=== PATIENT | male | born 1955 ===

== ENCOUNTER 2025-09-04 08:46 | Outpatient (AMB) | payer OTHER, MEDICAID, SELFPAY ==
[2025-09-04 08:51] VITALS: BMI 19.6
--- NOTE | 2025-09-04 08:51 | A.PHYSOV_ITS ---
Vital Signs 09/04/25 08:51 Height 5 ft 7 in Weight 125 lb BMI 19.6 Intake Visit Reasons: Left shoulder injection (ortho note scanned) Intake Note: Patient is a 70 year male in office to requesting a left shoulder injection. Last injection done 05/16/25 by [facility] [employer] Required: No Allergies No Known Allergies Allergy (Verified 09/04/25 08:49) PFSH Medical History (Updated 09/04/25 @ 09:16 by Larry Ferreira DO) Rotator cuff impingement syndrome of left shoulder Surgical History (Updated 08/31/25 @ 12:37 by Mary Jon MA) Hx of eye surgery (Unknown) History of hernia repair History of cataract surgery Social History (Updated 09/04/25 @ 08:53 by Mary Jon MA) Household Members: Spouse Alcohol intake: current Alcohol intake frequency: 0-2 drinks per day Patient Tobacco Use Status: Never used Tobacco Substance Use Type: Marijuana Current occupational status: employed Physical Exam Vital Signs: BMI result Body Mass Index 19.6 Office Procedures AMB Shoulder Injection AMB Shoulder Injection Procedure Details: After informed consent was obtained, posterior aspect of the left shoulder was prepped with Betadine. 1.5 in 22 gauge hypodermic needle was introduced percutaneously and advanced into the subacromial area. After negative aspiration for blood total volume of 6 cc containing 40 mg of triamcinolone and 2% lidocaine was injected without resistance. Patient tolerated procedure very well without complications with excellent anesthetic response. Shoulder Injection - : Left All charges added?: Procedure code (CPT) selection complete Office Meds Kenalog 40 mg/mL suspension for injection Performing Provider: Larry Ferreira DO Performing Location: [facility] Administered by: Larry Ferreira DO on 09/04/25 09:16 Dose Route Admin Location Dispensed Lot Number Expiration Date [facility] Weight Yardage Checker 40 mg intra-articular 1 mL [id number] [employer] Total Dispensed Waste 1 mL 0 % lidocaine (PF) 20 mg/mL (2 %) injection solution Performing Provider: Larry Ferreira DO Performing Location: [facility] Administered by: Larry Ferreira DO on 09/04/25 09:16 Dose Route Admin Location Dispensed Lot Number Expiration Date [facility] Weight Yardage Checker 120 mg intra-articular 10 mL [id number] [employer] Total Dispensed Waste 10 mL 40 % Assessment & Plan Assessment & Plan (1) Rotator cuff impingement syndrome of left shoulder: Code(s): M75.42 - Impingement syndrome of left shoulder Category: Medical Plan Left shoulder subacromial injection Orders: Orders AMB Shoulder Injection Today M75.42 - Impingement syndrome of left shoulder Patient Instructions: Risks and benefits of the procedure were discussed with the patient. Potential alternative measures were also discussed. Patient understands that the procedure is completely elective. Potential side effects associated with injectable medications were discussed. All questions were answered to the patient's satisfaction. Coding Level of Care Code Procedure Only Diagnoses Rotator cuff impingement syndrome of left shoulder M75.42 CPT Codes AMB Shoulder Injection - Hip/Bursa Injection - : Left ([id number])
--- OUTSIDE RECORDS SUMMARY | 2025-09-04 09:08 | XMS_ITS | Encounter Summary ---
Author Organization [facility] Address [address] [place] [address] Care Team Providers Care Fish Egg Packer Name Role Phone Argenis Vences MD Primary Care Provider [phone] Encounter Details Date Type Department Care Team ([facility] Contact Info) Description 08/27/2025 Results Follow-Up Internal Medicine - [address] [phone] Yvan Kamara NP [address] [place] [phone] Social History Tobacco Use Types Packs/Day Years Used Date Smoking Tobacco: Never Smokeless Tobacco: Never Alcohol Use Standard Drinks/Week Comments Yes 5 (1 standard drink = 0.6 oz pur e alcohol) Housing Instability Answer Date Recorde d Are you worried that in the next 2 months you may not have stable housing? Yes 01/03/2025 Food Access & Nutrition Answer Date Rec orded Do you have access to a vari ety of food including fruits and vegetables? Yes 01/03/2025 Health Literacy Answer Date Recorded How often do you need to hav e someone help you when you read instructions, pamphlets, or other written material from your doctor or pharmacy? Rarely 01/03/2025 Caregiver: How often do you need to have someone help you when you read instructions, pamphlets, or other written material from your doctor or pharmacy? Not on file 01/03/2025 Financial Risk Answer Date Recorded How hard is it for you to pa y for the very basics like food, housing, medical care, and air conditioning / heating? Hard 01/03/2025 Transportation Answer Date Recorded Has the lack of transportati on kept you from meetings, work, or from getting things needed for daily living? Yes Has the lack of transportati on kept you from medical appointments or from getting medications? Yes 01/03/2025 Social Isolation Answer Date Recorded How often do you feel lonely or isolated from th ose around you? Often 01/03/2025 Food Risk Answer Date Recorded Within the past 12 months we worried whether our food would run out before we got money to buy more. Often true 01/03/2025 Within the past 12 months th e food we bought just didn't last and we didn't have money to get more. Often true 01/03/2025 Dependent Care Answer Date Recorded Do you need help finding or paying for care for your loved ones. 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care attendant or elderly care for an older adult? Yes 01/03/2025 Education Answer Date Recorded Do you think completing more education or training, like finishing a GED, going to college, or learning a trade, would be helpful for you? No 12/31/2024 Employment and Income Answer Date Recor ded During the last four weeks, have you been actively looking for work? Yes 01/03/2025 Living Situation Answer Date Recorded What is your living situation? Unrecognized valu e 01/03/2025 Sex and Gender Information Value Date Recorded Sex Assigned at Not on file Legal Sex Male 5:56 AM EST Gender Identity Not on file Sexual Orientation Not on file documented as of this encounter Ordered Prescriptions Prescription Sig Dispense Quantity Refills Last Filled Start Date End Date calcium carbonate-vitamin D3 600 mg-10 mcg (400 unit) chewable tabletIndications:H ypocalcemia Chew 1 tablet 1 (one) time each day. 30 tablet 08/27/2025 documented in this encounter Plan of Treatment Upcoming Encounters Date Type Department Care Team (Late st Contact Info) Description 11/14/2025 9:00 AM EST Office Visit Endocrinology - [address] [phone] [employer] [address] [place] [address] 11/19/2025 11:45 AM EST Office Visit Pulmonology [address] [place] [phone] Edward Germain MD [address] [place] [phone] 01/30/2026 11:00 AM EDT Office Visit Internal Medicine - [address] [phone] Argenis Vences MD [address] [place] [address] Scheduled Orders Name Type Priority Associated Diagnoses Orde r Schedule Basic metabolic panel Lab Routine Hypocalcemia Hypoproteinemia ([facility] V24) 1 Occurrences starting 08/27/2025 until 08/27/2026 Microalbumin creatinine urine ratio Lab Routine Hypoproteinemia ([facility] V24) Expected: 08/27/2025 (Approximate), Expires: 10/27/2025 Vitamin D 25 hydroxy Lab Routine Hypocalcemia Expected: 11/27/2025 (Approximate), Expires: 02/24/2026 Parathyroid hormone intact Lab Routine Hypocalcemia Expected: 09/03/2025 (Approximate), Expires: 12/25/2025 documented as of this encounter Visit Diagnoses Diagnosis Hypocalcemia- Primary Hypoproteinemia ([facility] V24) Other disorders of plasma protein metabolism documented in this encounter Additional Health Concerns Assessment Noted Time PHQ-9 Depression Total Score: 1 08/27/20 8:56 AM EST documented as of this encounter Care Teams Fish Egg Packer Relationship Specialty Start Date End Date Argenis Vences MD [address] [place] [address] PCP - General Internal Medicine 05/14/25 documented as of this encounter
--- OUTSIDE RECORDS SUMMARY | 2025-09-04 09:08 | XMS_ITS | Encounter Summary ---
Author Organization [facility] Address [address] [place] [address] Care Team Providers Care Childcare Attendant Name Role Phone Argenis Vences MD Primary Care Provider [phone] Encounter Details Date Type Department Care Team ([facility] st Contact Info) Description 08/05/2025 Results Follow-Up [facility] Pulmonary [address] [place] [address] Edward Germain MD [address] [place] [phone] Social History Tobacco Use Types Packs/Day Years [...] care for your loved ones. 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 daycare worker or elderly care for an older adult? [...] on file documented as of this encounter Plan of Treatment Upcoming Encounters Date Type Department Care Team (Late st Contact Info) Description 11/14/2025 9:00 AM EST Office Visit Endocrinology - [address] [phone] [employer] [address] [place] [address] 11/19/2025 11:45 AM EST Office Visit Pulmonology - [address] [place] [phone] Edward Germain MD [address] [place] [phone] 01/30/2026 11:00 AM EDT Office Visit Internal Medicine - [facility] [address] [facility] [place] [phone] Argenis Vences MD [address] [facility] [place] documented as of this encounter Visit Diagnoses Not on filedocumented in this encounter Additional Health Concerns Assessment Noted Time PHQ-9 Depression Total Score: 20 025 1:16 PM EDT documented as of this encounter Care Teams Childcare Attendant Relationship Specialty Start Date End Date Argenis Vences MD [address] [place] PCP - General Internal Medicine 05/14/25 documented as of this encounter
--- OUTSIDE RECORDS SUMMARY | 2025-09-04 09:08 | XMS_ITS | Clinical Summary ---
Author Organization 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 06/21/20 24 Active sildenafiL (VIAGRA) 100 mg tablet START WITH ONE-HALF TABLET AND INCREASE TO ONE TABLET NEEDED 30-60 MINUTES BEFORE INTERCOURSE. MAX OF 100MG IN 24 HOURS 01/19/20 24 Active pen needle, diabetic 32 gauge x 5/32 needle INJECT 1 EACH INTO THE SKIN 5 TIMES DAILY ( LANTUS TWICE A DAY AND HUMALOG 4-5 TIMES DAILY PER SLIDING SCALE) Active FREESTYLE LANCETS MISC 1 Each by Does not apply route 4 times daily as needed for Other (sliding scale). Active glucose blood test strip 1 Device by In Vitro route 4 times daily. Active Autolet lancing device Use to test sugars 4-5 times daily Active ONETOUCH DELICA LANCETS MISC Use to test sugars 4-5 times daily Active cyanocobalami n (VITAMIN B-12) 1,000 mcg tablet Take 1 tab daily from Tuesday to Tuesday - skip Tuesday and Tuesday 90 each 1 01/22/20 25 Active mirtazapine (REMERON) 15 mg tablet Take 1 tablet (15 mg total) by mouth at bedtime. 30 each 2 02/23/20 25 Active blood-glucose sensor (FreeStyle Jeremiah 3 Plus Sensor) device by subcutaneous (via wearable injector) route every 14 (fourteen) days. 2 each 04/16/20 25 Active albuterol HFA (PROAIR HFA ; PROVENTIL HFA ; VENTOLIN HFA) 90 mcg/actuation inhaler Inhale 2 puffs by mouth every 6 (six) hours if needed for wheezing. 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 Use the following sliding scale: 150-199: 2 units; 200-249: 3 units; 250-299: 4 units; 300-349: 5 units; 350-400: 6 units 15 mL 05/03/20 25 Active fluticasone furoate-vilan teroL (Breo Ellipta) 100-25 mcg/dose inhaler Inhale 1 puff by mouth 1 (one) time each day. 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 15 mL 08/14/20 25 Active calcium carbonate-vit hernandez D3 600 mg-10 mcg (400 unit) chewable tabletIndicat ions:Hypocalc emia Chew 1 tablet 1 (one) time each day. 30 tablet 08/27/20 25 Active blood-glucose meter,continu ous (FreeStyle Jeremiah 3 [place]) misc 1 Device by Does not apply route daily. 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 15 mL 5 07/18/20 25 025 Discontinued(R eorder) Active Problems Problem Noted Date Diagnosed Date Dyspnea 06/11/2022 Weight loss, unintentional 06/11/2022 Hyperlipidemia 02/19/2022 Assessment & Plan (01/21/2025 1:25 PM EDT): Follow low-cholesterol diet. Most recent cholesterol levels are normal. Depression 07/03/2019 Assessment & Plan (02/22/2025 2:23 PM EDT): I have increased his mirtazapine dose to 15 mg daily. Side effects of medication discussed. Will follow-up again in 2 months time. Osteoarthritis of left hand 08/23/2017 Chronic pain 06/13/2014 Overview (07/23/2024): Was on vicodin, one bid, on marijuana, no longer on Vicodin. DM type 1 with diabetic wan pheral neuropathy ([facility] V24, [facility] V28) 10/29/2013 Assessment & Plan (02/22/2025 2:23 PM EDT): Continue current treatment of insulin glargine and Humalog. He is being monitored by endocrinology. He is on gabapentin for neuropathy. Assessment & Plan (01/21/2025 1:25 PM EDT): He is being monitored by endocrinology for his type 1 diabetes. An upcoming appointment with them. He is on gabapentin for neuropathy. Orders: Microalbumin creatinine urine ratio; Future Vitiligo 06/18/2013 Positive hepatitis C antibody test 03/02/2013 Solar lentigo 01/03/2013 Microalbuminuria 01/28/2011 Assessment & Plan (02/22/2025 2:23 PM EDT): Repeat urine microalbumin levels normalized. 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 ([facility]/HCC V24, CMS/HCC V28); Screening, anemia, deficiency, iron; Hyperlipidemia, unspecified hyperlipidemia type 08/27/2025 9:00 AM EST Office Visit Internal Medicine - [address] [phone] Yvan Kamara NP Adrenal nodule ([facility]/HCC V24) (Primary Dx) 08/27/2025 Results Follow-Up Internal Medicine - [address] [phone] Yvan Kamara NP 08/14/2025 3:00 PM EST Office Visit Endocrinology - [address] [phone] Juana Marin PA 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 (CMS/HCC V24, CMS/HCC V28) (Primary Dx) 08/05/2025 Results Follow-Up [facility] Pulmonary [address] [place] [phone] Edward Germain MD 07/19/2025 8:33 AM EDT - 07/19/2025 11:59 PM EDT Hospital Encounter CT Scan - [address] [phone] Dyspnea, unspecified type; Mild intermittent reactive airway disease without complication; Cachexia ([facility]24); Pulmonary emphysema ([facility] V24, [facility] V28) Discharge Disposition: Home or Self Care 07/18/2025 9:30 AM EDT Office Visit Internal Medicine - [address] [phone] Yvan Kamara, ESTELA 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 ([facility] V24, [facility] V28) (Primary Dx); Hyperlipidemia, unspecified hyperlipidemia type; Screening, anemia, deficiency, iron; Immunization due 07/16/2025 11:00 AM EDT Office Visit Pulmonology [address] [phone] Edward Germain MD Dyspnea, unspecified type (Primary Dx); Mild intermittent reactive airway disease without complication; Cachexia ([facility] V24); Pulmonary emphysema ([facility] V24, [facility] V28) 07/16/2025 10:30 AM EDT Ancillary Procedure Pulmonology - [address] [phone] Exertional dyspnea 06/25/2025 5:45 PM EDT Office Visit Walk-In Clinic - [address] [phone] Segundo Perea PA COVID-19 (Primary Dx) 06/25/2025 Telephone Internal Medicine - [address] [phone] Argenis Vences MD 06/04/2025 Telephone Internal Medicine - [address] [phone] Argenis Vences MD from Last 3 Months Immunizations Immunization Administration Dates Next Due Influenza Quadravalent, MDCK , 0.5ml, preservative free (Flucelvax) 6mo and older 08/27/2019,08/04/2018 Influenza Quadravalent, MDCK , 0.5ml, with preservative (Flucelvax) 6mo and older 08/23/2017 Influenza trivalent, 0.5mL ( Fluad) 65yo and older 07/18/2025,07/26/2023,07/01/2022,07/02,07/31/2020 Influenza trivalent, 0.5mL, preservative free (Fluarix; FluLaval; Fluzone) ages 6mo and older (Afluria) 3 years and older 08/27/2016,09/15/2015,09/03/2014,10/13,06/29/2010,06/25/2009,09/23/2008 ,08/08/2007,07/28/2006 Pfizer SARS-CoV-2 COVID-19, mRNA, LNP-S, preservative free 08/23/2022,03/10/2022,01/15/2021,12/25 Pneumococcal conjugate 13 va lent (Prevnar 13, PCV13) 2mo and older 09/20/2020 Pneumococcal polysaccharide 23 valent (Pneumovax 23) 2yo and older 10/22/2021,07/19/2005,04/25/2000 Td Tetanus diptheria (Tdvax) 7yo and older 07/19/2005,04/25/2000 Tdap Tetanus diptheria acell ular pertussis (Boostrix; Adacel) 7yo and older 02/15/2013 Surgical History Surgery Date Site/Laterality Comments GLAUCOMA SURGERY PROCEDURE:GLAUCOMA SURGERY CATARACT EXTRACTION, BILATERAL PROCEDURE:CATARACT EXTRACTION, BILATERAL HERNIA REPAIR PROCEDURE:HERNIA REPAIR MULTIPLE TOOTH EXTRACTIONS 10/16 PROCEDURE: HISTORICAL DENTAL EXTRACTION; COMMENT: 10/16 all maxillary teeth extracted except one, parital denture EYE SURGERY 10/2014 Bilateral PROCEDURE: HISTORICAL EYE SURGERY; COMMENT: Dr Estevez retina surgery COLONOSCOPY 04/18/07 PROCEDURE: HISTORICAL COLONOSCOPY; COMMENT: normal; repeat in ten years OTHER SURGICAL HISTORY 04/20/2017 PROCEDURE: COLON CA SCRN NOT HI RSK IND; COMMENT: tics; repeat in 10 yrs EYE SURGERY 04/2018 Bilateral PROCEDURE: HISTORICAL EYE SURGERY; COMMENT: Dr Hero Bravo bilat Laser for narrow angle glaucoma HERNIA REPAIR 12/2018 Left PROCEDURE: HISTORICAL HERNIA REPAIR/ING; COMMENT: Dr Patton CATARACT EXTRACTION 01/2019 Bilateral PROCEDURE: HISTORICAL CATARACT REMOVAL Medical History Medical History Date Comments Diabetes mellitus (CMS/[facility] V 24, CMS/[facility] V28) DX:Diabetes mellitus (HCC) Vitiligo DX:Vitiligo Type I (juvenile type) diabe valerie mellitus without mention of complication, not stated as uncontrolled 04/22/2006 DX:Type I (juvenile type) di abetes mellitus without mention of complication, not stated as uncontrolled Solar lentigo 01/03/2013 DX:Solar lentigo Osteoarthritis of left hand 08/23/2017 DX:O steoarthritis of left hand Left inguinal hernia DX:Left ing uinal hernia Gastroesophageal reflux DX:Gastr oesophageal reflux Depressive disorder DX:Depressiv e disorder Glaucoma DX:Glaucoma; COM MENT: closed angle, retinopathy, cataract Rotator cuff tear arthropath y of left shoulder DX:Rotator cuff tear arthrop athy of left shoulder Family History Medical History Relation Name Comments No Known Problems Brother 2 Bipolar disorder Daughter Schizophrenia Daughter No Known Problems Father Cirrhosis Mother Diabetes Mother No Known Problems Sister Other Son stomach disorde r, unsure of what it is Relation Name Status Comments Brother 1 suicide 07/14 Brother 2 Alive older biol. bro ther is healthy Brother 3 half brother Alive Daughter Alive Father age 4 parents d ivorced, biol father healthy as of 02/13 Mother Sister Alive healthy biol si ster, and 2 step sisters are healthy Son Alive Social History Tobacco Use Types Packs/Day Years Used Date Smoking Tobacco: Never Smokeless Tobacco: Never Tobacco Cessation:Counseling Given: Not Answered Alcohol Use Standard Drinks/Week Comments Yes 5 [...] for your loved ones. 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 adolescent care or elderly care for an older adult? [...] on file Sexual Orientation Not on file Obstetrics History Last Filed Vital Signs Vital Sign Reading Time Taken Comments Blood Pressure 121/53 08/27/2025 9:38 AM EST Pulse 78 08/27/2025 8:55 AM EST Temperature 36.4 C (97.5 F) 08/14/2025 3:32 PM EST Respiratory Rate 20 07/16/2025 11:18 AM EDT Oxygen Saturation 98% 07/16/2025 11:18 AM EDT Inhaled Oxygen Concentration - - Weight 56.3 kg (124 lb 1.6 oz) 08/27/2025 8:55 A M EST Height 170.2 cm (5' 7 ) 08/27/2025 8:55 AM EST Body Mass Index 19.44 08/27/2025 8:55 AM EST Plan of Treatment Upcoming Encounters Date Type Department Care Team (Late st Contact Info) Description 11/14/2025 9:00 AM EST Office Visit Endocrinology - [place] [address] [place] [phone] Iqra Gaming PA [address] [place] [address] 11/19/2025 11:45 AM EST Office Visit Pulmonology - [place] [address] [place] [phone] Edward Germain MD [address] [place] [phone] 01/30/2026 11:00 AM EDT Office Visit Internal Medicine - [address] [phone] Argenis Vences MD [address] [place] [phone] Health Maintenance Due Date Last Done Comments Diabetes: Annual Foot Exam 1965 Zoster Vaccines (1 of 2) 1974 RSV Immunization Adult Patients (1 - Risk 50-74 years 1-dose series) 2005 DTaP,Tdap,and Td Vaccines (4 - Td or Tdap) 02/15/2023 02/15/2013, 07/19/2005, 04/25/2000 COVID-19 Vaccine ( season) 2025 06/22/2024, 08/23/2022, 03/10/2022, Additional history exists Diabetes: Annual Retina Eye Exam 08/20/2025 08/20/2024 Falls Risk Assessment 01/03/2026 01/03/2025 Medicare Annual Wellness Visit 01/03/2026 01/03/2025 Social Influencers of Health Screening 01/03/2026 01/03/2025 Diabetes: Annual Urine Albumin-Creatinine Ratio (uACR) 02/21/2026 02/21/2025, 09/08/2023 Diabetes: Blood Sugar Control Test (HGBA1C) 02/24/2026 08/27/2025, 02/21/2025, 11/02/2024, Additional history exists Diabetes: Annual GFR (Glomerular Filtration Rate) 08/27/2026 08/27/2025, 01/16/2025, 10/12/2024, Additional history exists Colorectal Cancer Screening: Colonoscopy 04/20/2027 04/20/2017 Cholesterol Screening (Lipid Panel) 08/27/2030 08/27/2025, 10/12/2024, 01/05/2023 Hepatitis C Screening Completed 02/15/2013 Pneumococcal Vaccine: 50+ Years Completed 10/22/2021, 09/20/2020, 07/19/2005, Additional history exists Influenza Vaccine Completed 07/18/2025, , 07/01/2022, Additional history exists Depression Screening Completed 08/27/2025 HIB Vaccines Aged Out No longer eligi ble based on patient's age to complete this topic HPV Vaccines Aged Out No longer eligi ble based on patient's age to complete this topic Hepatitis A Vaccines Aged Out No long er eligible based on patient's age to complete this topic Hepatitis B Vaccines Aged Out No long er eligible based on patient's age to complete this topic IPV Vaccines Aged Out No longer eligi ble based on patient's age to complete this topic MMR Vaccines Aged Out No longer eligi ble based on patient's age to complete this topic Meningococcal ACWY Vaccine Aged Out N o longer eligible based on patient's age to complete this topic Meningococcal B Vaccine Aged Out No l onger eligible based on patient's age to complete this topic RSV Immunization Patients Under 20 months Aged Out No longer eligible based on patient's age to complete this topic Varicella Vaccines Aged Out No longer eligible based on patient's age to complete this topic Procedures Procedure Name Priority Date/Time Associated Diagnosis Comments CBC WITH AUTO DIFFERENTIAL Routine 08/27/2025 9:52 AM EST Screening, anemia, deficiency, iron HEMOGLOBIN A1C Routine 08/27/2025 9:52 AM EST 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 ([facility] V24, [facility] V28) COMPREHENSIVE METABOLIC PANEL Routine 08/27/2025 9:52 AM EST 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 (CMS/HCC V24, CMS/HCC V28) Hyperlipidemia, unspecified hyperlipidemia type LIPID PANEL WITH REFLEX TO DIRECT LDL Routine 08/27/2025 9:52 AM EST Hyperlipidemia, unspecified hyperlipidemia type CBC AND DIFFERENTIAL Routine 08/27/2025 9:52 AM EST Screening, anemia, deficiency, iron CT CHEST WO CONTRAST Routine 07/19/2025 8:53 AM EDT Dyspnea, unspecified type Mild intermittent reactive airway disease without complication Cachexia (CMS/HCC V24) Pulmonary emphysema (CMS/HCC V24, CMS/HCC V28) PULMONARY FUNCTION TESTING Routine 07/16/2025 10:33 AM EDT Exertional dyspnea POC RAPID [id number], MOLECULAR Routine 06/25/2025 5:58 PM EDT COVID-19 MICROALBUMIN CREATININE URINE RATIO Routine 02/21/2025 9:59 AM EDT 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 (CMS/HCC V24, CMS/HCC V28) COLONOSCOPY Routine 04/20/2017 HEPATITIS C SCREENING Routine 02/15/2013 from Last 3 Months or Most Recently Relevant to Health Maintenance Results * Lipid panel with reflex to direct LDL (08/27/2025 9:52 AM EST) Cholesterol 159 0 - 200 mg/dL 08/27/2025 2:32 PM [facility] Triglycerides 57 0 - 150 mg/dL 08/27/2025 2:32 PM [facility] HDL 90 >=40 mg/dL 08/27/2025 2:32 PM [facility] LDL Calculated 58 0 - 100 mg/dL 08/27/2025 2:32 PM EST [facility] Comment:Estimated LDL Calcul ated using equation: Total cholesterol - HDL cholesterol - (Triglycerides/5) VLDL Cholesterol Alberto 11.4 mg/dL 08/27/2025 2:32 PM [facility] Non HDL Chol. (LDL+VLDL) 69 <145 mg/dL 08/27/2025 2:32 PM [facility] Chol/HDL Ratio 1.8 0.0 - 4.4 08/27/2025 2:32 PM [facility] Blood Venous blood specimen / Unknown Venipuncture / Unknown 08/27/2025 9:52 AM EST 08/27/2025 9:52 AM EST Yvan Kamara CUSTOMER SERVICES MANAGER LAB BLOOD ORDERABLES Final Res ult [facility] [address] [place] [address], * (ABNORMAL) CBC auto differential (08/27/2025 9:52 AM EST) WBC 7.8 4.8 - 10.8 K/mcL LAB HEMETOLOGY METHOD 08/27/2025 11:48 AM [facility] RBC 4.10(L) 4.50 - 5.50 M/mcL LAB HEMETOLOGY METHOD 08/27/2025 11:48 AM [facility] Hemoglobin 14.4 13.5 - 17.5 g/dL LAB HEMETOLOGY METHOD 08/27/2025 11:48 AM [facility] Hematocrit 41.3(L) 42.0 - 54.0 % LAB HEMETOLOGY METHOD 08/27/2025 11:48 AM [facility] MCV 99.8(H) 79.0 - 98.0 FL LAB HEMETOLOGY METHOD 08/27/2025 11:48 AM [facility] MCH 34.8(H) 27.0 - 32.0 pcg LAB HEMETOLOGY METHOD 08/27/2025 11:48 AM [facility] MCHC 34.9 32.0 - 37.0 g/dL LAB HEMETOLOGY METHOD 08/27/2025 11:48 AM [facility] RDW 12.5 11.0 - 15.0 % LAB HEMETOLOGY METHOD 08/27/2025 11:48 AM [facility] Platelets 335 130 - 400 K/mcL LAB HEMETOLOGY METHOD 08/27/2025 11:48 AM [facility] MPV 10.7 7.0 - 11.0 FL LAB HEMETOLOGY METHOD 08/27/2025 11:48 AM [facility] NRBC 0.0 <1.0 % LAB HEMETOLOGY METHOD 08/27/2025 11:48 AM [facility] NRBC Absolute 0.00 <0.10 K/mcL LAB HEMETOLOGY METHOD 08/27/2025 11:48 AM [facility] Neutrophils Relative 69.2 % LAB HEMETOLOGY METHOD 08/27/2025 11:48 AM [facility] Lymphocytes Relative 22.9 % LAB HEMETOLOGY METHOD 08/27/2025 11:48 AM [facility] Monocytes Relative 6.0 % LAB HEMETOLOGY METHOD 08/27/2025 11:48 AM [facility] Eosinophils Relative 1.2 % LAB HEMETOLOGY METHOD 08/27/2025 11:48 AM [facility] Basophils Relative 0.4 % LAB HEMETOLOGY METHOD 08/27/2025 11:48 AM [facility] Immature Granulocytes Relative 0.3 % LAB HEMETOLOGY METHOD 08/27/2025 11:48 AM [facility] Neutrophils Absolute 5.39 1.50 - 7.00 K/mcL LAB HEMETOLOGY METHOD 08/27/2025 11:48 AM EST [facility] Lymphocytes Absolute 1.78 1.00 - 5.00 K/[facility] HEMETOLOGY METHOD 08/27/2025 11:48 AM EST [facility] Monocytes Absolute 0.47 0.20 - 1.00 K/[facility] HEMETOLOGY METHOD 08/27/2025 11:48 AM EST [facility] Eosinophils Absolute 0.09 0.00 - 0.50 K/[facility] HEMETOLOGY METHOD 08/27/2025 11:48 AM EST [facility] Basophils Absolute 0.03 0.00 - 0.20 K/[facility] HEMETOLOGY METHOD 08/27/2025 11:48 AM EST [facility] Immature Granulocytes Absolute 0.02 0.00 - 0.03 K/[facility] HEMETOLOGY METHOD 08/27/2025 11:48 AM EST [facility] Blood Venous blood specimen / Unknown Venipuncture / Unknown 08/27/2025 9:52 AM EST 08/27/2025 9:52 AM EST us Yvan Kamara CUSTOMER SERVICES MANAGER LAB BLOOD ORDERABLES Final Res ult [facility] [address] [place] [address], * (ABNORMAL) Hemoglobin A1c (08/27/2025 9:52 AM EST) Hemoglobin A1C 8.4(H) <6.5 % LAB CHEMISTRY METHOD 08/27/2025 2:05 PM EST [facility] Mean Bld Glu Estim. 194 mg/dL LAB CHEMISTRY METHOD 08/27/2025 2:05 PM EST [facility] Blood Venous blood specimen / Unknown Venipuncture / Unknown 08/27/2025 9:52 AM EST 08/27/2025 9:52 AM EST us Juana LLAMAS LAB BLOOD ORDERABLES Final Result [facility] [address] [place] [address], * (ABNORMAL) Comprehensive metabolic panel (08/27/2025 9:52 AM EST) Sodium 133 133 - 145 mmol/L 08/27/2025 2:31 PM [facility] Potassium 4.7 3.5 - 5.5 mmol/L 08/27/2025 2:31 PM [facility] Chloride 101 96 - 110 mmol/L 08/27/2025 2:31 PM [facility] CO2 27 21 - 32 mmol/L 08/27/2025 2:31 PM [facility] Anion Gap 5 3 - 11 08/27/2025 2:31 PM [facility] Glucose 278(H) 70 - 100 mg/dL 08/27/2025 2:31 PM [facility] BUN 18 5 - 25 mg/dL 08/27/2025 2:31 PM [facility] Creatinine 0.83 0.70 - 1.30 mg/dL 08/27/2025 2:31 PM [facility] eGFR 94 >=60 mL/min/1. 73m2 08/27/2025 2:31 PM [facility] Comment:Calculation based on the Chronic Kidney Disease Epidemiology Collaboration (CKD-EPI) equation refit without adjustment for race. BUN/Creatinine Ratio 21.7 08/27/2025 2:31 PM [facility] Calcium 7.9(L) 8.5 - 10.5 mg/dL 08/27/2025 2:31 PM [facility] AST (SGOT) 18 10 - 42 unit/L 08/27/2025 2:31 PM [facility] ALT (SGPT) 18 10 - 60 unit/L 08/27/2025 2:31 PM [facility] Alkaline Phosphatase 88 42 - 121 unit/L 08/27/2025 2:31 PM [facility] Total Protein 5.6(L) 6.0 - 8.0 g/dL 08/27/2025 2:31 PM [facility] Albumin 3.8 3.2 - 5.0 g/dL 08/27/2025 2:31 PM [facility] Total Bilirubin 0.4 0.0 - 1.4 mg/dL 08/27/2025 2:31 PM [facility] Blood Venous blood specimen / Unknown Venipuncture / Unknown 08/27/2025 9:52 AM EST 08/27/2025 9:52 AM EST us Yvan Kamara NP LAB BLOOD ORDERABLES Final Res ult [facility] [address] [place] [address], * CT Chest wo Contrast (07/19/2025 8:53 AM EDT) Anatomical Region Laterality Modality Body Computed Tomogra phy 07/19/2025 9:21 AM EDT Impressions 07/19/2025 9:56 AM EDT 1. Scattered pulmonary nodules measuring up to 3 mm. No follow-up needed if patient is low-risk (and has no known or suspected primary neoplasm). Non-contrast chest CT can be considered in 12 months if patient is high-risk (Per Fleischner Society guidelines). 2. Bilateral lipid rich adrenal nodules. -------- FINAL REPORT -------- Dictated By: Esperanza Portillo Dictated Date: 07/19/2025 09:21 ET Assigned Physician: Esperanza Portillo Reviewed and Electronically Signed By: Esperanza Portillo Signed Date: 07/19/2025 09:56 ET Workstation ID: [id number] Transcribed By: Self Edit Transcribed Date: 07/19/2025 09:21 ET Narrative 07/19/2025 9:[address] CHEST HISTORY: Dyspnea, on exertion. TECHNIQUE: Chest CT was performed utilizing contiguous noncontrasted axial images from the thoracic inlet to below the diaphragm. The images were reformatted in the coronal and sagittal planes. Radiation dosage is 7.22mGy COMPARISON: CT chest from 07/02/2022 FINDINGS: Base of neck: The thyroid and base of the neck are within normal limits. Mediastinum: The heart is normal in size, trace pericardial effusion. Mild atherosclerosis of the thoracic aorta and coronary arteries. Subcentimeter lymph nodes within the mediastinal stations. Lungs: Evaluation of the lung parenchyma demonstrates apical pleural-parenchymal scarring. 3 mm solid right upper lobe pulmonary nodule (series 2, image 120). 3 mm solid nodule within the right middle lobe (series 2, image 244). 2 mm solid right lower lobe nodule (series 2, image 234). The trachea and mainstem bronchi are patent. Upper Abdomen: Limited visualization of the extreme upper abdomen demonstrates a 1.1 x 1.8 cm left lipid rich adrenal nodule. Right lipid rich adrenal nodule measures 1.3 x 0.9 cm. MSK: Gynecomastia is present. Moderate degenerative changes of the thoracic spine. Procedure Note Esperanza Portillo MD - 07/19/2025 CT CHEST HISTORY: Dyspnea, on exertion. TECHNIQUE: Chest CT was performed utilizing contiguous noncontrasted axialimages from the thoracic inlet to below the diaphragm. The images werereformatted in the coronal and sagittal planes. Radiation dosage is7.22mGy COMPARISON: CT chest from 07/02/2022 FINDINGS: Base of neck: The thyroid and base of the neck are within normal limits. Mediastinum: The heart is normal in size, trace pericardial effusion. Mildatherosclerosis of the thoracic aorta and coronary arteries. Subcentimeterlymph nodes within the mediastinal stations. Lungs: Evaluation of the lung parenchyma demonstrates apicalpleural-parenchymal scarring. 3 mm solid right upper lobe pulmonary nodule(series 2, image 120). 3 mm solid nodule within the right middle lobe(series 2, image 244). 2 mm solid right lower lobe nodule (series 2, [id number]). The trachea and mainstem bronchi are patent. Upper Abdomen: Limited visualization of the extreme upper abdomendemonstrates a 1.1 x 1.8 cm left lipid rich adrenal nodule. Right lipidrich adrenal nodule measures 1.3 x 0.9 cm. MSK: Gynecomastia is present. Moderate degenerative changes of thethoracic spine. IMPRESSION: 1. Scattered pulmonary nodules measuring up to 3 mm. No follow-up neededif patient is low-risk (and has no known or suspected primary neoplasm).Non-contrast chest CT can be considered in 12 months if patient ishigh-risk (Per Fleischner Society guidelines). 2. Bilateral lipid rich adrenal nodules. -------- FINAL REPORT -------- Dictated By: Esperanza Portillo Dictated Date: 07/19/2025 09:21 ET Assigned Physician: Esperanza Portillo Reviewed and Electronically Signed By: Esperanza Portillo Signed Date: 07/19/2025 09:56 ET Workstation ID: [id number] Transcribed By: Self Edit Transcribed Date: 07/19/2025 09:21 ET Edward Germain MD IM CT PROCEDURES Final Result * Pulmonary function testing: Spirometry with Bronchodilator, Carbon Monoxide Diffusing Capacity, Vital Capacity Test, Nitrogen Wash Out (07/16/2025 10:33 AM EDT) Impressions Luna Buckner MD - 07/16/2025 10:33 AM EDT Pulmonary function test interpretation. Spirometry done today reveals FEV1 of 3.29 which is 115% of the predicted value, FVC is 3.70 which is 95% of the predicted value, FEV1 to FVC ratio is 120% of the predicted value, bronchodilator response was not assessed. Flow-volume loop is consistent with normal pattern. Static lung volumes are either within normal limit or elevated. Diffusion capacity is within normal limit however mildly reduced after correction for alveolar volume. This study is consistent with normal spirometry and lung volumes there is isolated reduction in diffusion capacity for which clinical correlation is advised. Edward Germain MD PFT ORDERABLES Final Result * (ABNORMAL) Poc Rapid [id number], MOLECULAR (06/25/2025 5:58 PM EDT) [facility] COVID-19/SARS- COV-2 Rapid POC Positive(A ) Negative Swab Nasopharyngeal structure / Unknown 06/25/2025 5:58 PM EDT Segundo LLAMAS POINT OF CARE TEST ENTER/E DIT ORDERABLES Edited Result - Final * Microalbumin creatinine urine ratio (02/21/2025 9:59 AM EDT) [facility] Creatinine, Urine 166.0 mg/dL LAB CHEMISTRY METHOD 02/21/2025 2:10 PM EDT [facility] Microalb, Ur 9.5 0.0 - 29.0 mg/L LAB CHEMISTRY METHOD 02/21/2025 2:10 PM EDT [facility] Microalb/Creat Ratio 6 <30 mg/g creat LAB CHEMISTRY METHOD 02/21/2025 2:10 PM EDT [facility] Urine Urine specimen obtained by clean catch procedure / Unknown Non-blood Collection / Unknown 02/21/2025 9:59 AM EDT 02/21/2025 9:59 AM EDT Montez Pierre MD LAB URINE ORDERABLES Cynthia l Result [facility] [address] [place] [address], * Colonoscopy (04/20/2017) [facility] Colonoscopy no interpretation abstracted Anatomical Region Laterality Modality Other Historical Provider HEALTH MAINTENANCE Final Result * Hepatitis C Screening (02/15/2013) [facility] Hepatitis C Screening positive Historical Provider HEALTH MAINTENANCE Final Result from Last 3 Months or Most Recently Relevant to Health Maintenance Insurance MEDICAID - [place] [employer] MEDICARE Care Teams [employer] Relationship Specialty Start Date End Date Argenis Vences MD [address] [facility] [place] [place] PCP - General Internal Medicine 05/14/25
--- OUTSIDE RECORDS SUMMARY | 2025-09-04 09:08 | XMS_ITS | Encounter Summary ---
Author Organization [facility] Address [address] [place] [address] Care Team Providers Care Registry Np Name Role Phone Argenis Vences MD Primary Care Provider [phone] Encounter Details Date Type Department Care Team ([facility] Contact Info) Description 08/28/2025 Results Follow-Up Endocrinology - [address] [id number] [place] [address] Juana Marin PA [address] [place] [address] Social History Tobacco Use Types Packs/Day Years [...] for your loved ones. 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 and family services worker or elderly care for an older [...] 9:00 AM EST Office Visit Endocrinology - [address] [place] [address] [employer] PA [address] [place] [address] 11/19/2025 11:45 AM EST Office Visit Pulmonology - [address] [place] [id number] Edward Germain MD [address] [place] [phone] 01/30/2026 11:00 AM EDT [facility] [address] [place] [phone] Argenis Vences MD [address] [place] documented as of this encounter Visit Diagnoses Not on filedocumented in this encounter Additional Health Concerns Assessment Noted Time PHQ-9 Depression Total Score: 1 08/27/20 8:56 AM EST documented as of this encounter Care Teams Registry Np Relationship Specialty Start Date End Date Argenis Vences MD [address] [place], [place] PCP - General Internal Medicine 05/14/25 documented as of this encounter
--- OUTSIDE RECORDS SUMMARY | 2025-09-04 09:08 | XMS_ITS | Clinical Summary ---
Author Organization [facility] Address [address] [place] [address] Care Team Providers Care [employer] Name Role Phone Montez Pierre MD Primary Care Provider [phone] Allergies No known active allergies Medications Medication Sig Dispensed Refills Start Date End Date Status insulin glargine (LANTUS) injection 100 units/mL Inject under the skin every night at bedtime. 0 Active insulin lispro (HumaLOG) injection 100 units/mL Inject under the skin once. 0 Active famotidine (PEPCID) 20 MG tablet Take 20 mg by mouth 2 (two) times a day. 0 Active Active Problems Problem Noted Date Diagnosed Date Weight loss, unintentional 06/11/2022 Dyspnea 06/11/2022 Family History Relation Name Status Comments Father Mother Social History Tobacco Use Types Packs/Day Years Used Date Smoking Tobacco: Never Smokeless Tobacco: Never Alcohol Use Standard Drinks/Week Comments Yes 5 (1 standard drink = 0.6 oz pur e alcohol) Daily Sex and Gender Information Value Date Recorded Sex Assigned at Not on file Gender Identity Not on file Sexual Orientation Not on file Job Start Date Occupation Industry Not on file Not on file Not on file Last Filed Vital Signs Vital Sign Reading Time Taken Comments Blood Pressure 136/53 10/14/2022 10:58 AM EST Pulse 68 10/14/2022 10:58 AM EST Temperature 37 C (98.6 F) 10/14/2022 10:58 AM EST Respiratory Rate - - Oxygen Saturation 100% 10/14/2022 10:58 AM EST Inhaled Oxygen Concentration - - Weight 54.5 kg (120 lb 3.2 oz) 10/14/2022 10:58 AM EST Height 170.2 cm (5' 7 ) 10/14/2022 10:58 AM EST Body Mass Index 18.83 10/14/2022 10:58 AM EST Plan of Treatment Health Maintenance Due Date Last Done Comments Hepatitis C Screening 1955 Depression Screening 1967 Preventative Health Evaluation 1973 Colon Cancer Screening (Colonoscopy) 01/26/2000 Shingrix-Zoster Vaccine (1 of 2) 2005 Fall Risk Assessment 01/26/2020 DTap / Tdap / Td (2 - Td or Tdap) 02/15/2023 02/15/2013, 07/19/2005, 04/25/2000 COVID-19 Vaccine ( season) 2025 08/23/2022, 03/10/2022, 01/15/2021, Additional history exists Influenza Vaccine (#1) 2025 , 07/02/2021, 07/31/2020, Additional history exists RSV Adult > 60+ Yrs or (1 - 1-dose 75+ series) 2030 Pneumococcal Vaccine Completed 10/22/2021, 09/20/2020, 07/19/2005, Additional history exists Hepatitis B Vaccines Aged Out No long er eligible based on patient's age to complete this topic RSV Ped < 20 months Aged Out No longe r eligible based on patient's age to complete this topic Care Teams [employer] Relationship Specialty Start Date End Date Montez Pierre MD [facility] [place] [address] PCP - General Internal Medicine 05/17/22
== END 2025-09-04 09:19 | disposition home or self-care (01) ==
PROVIDERS: Visit Provider Physical Medicine & Rehabilitation
DX: M75.42 Impingement syndrome of left shoulder (principal)
CPT/HCPCS: 20610

== ENCOUNTER → 2025-09-04 08:46 | Outpatient (BNVA) | payer MEDICARE, MEDICAID, SELFPAY | PROVIDERS: Visit Provider Physical Medicine & Rehabilitation | DX: M75.42 Impingement syndrome of left shoulder (principal) | CPT/HCPCS: 20610; J2003; J3301 ==